=== PATIENT | female | born 1935 | race Caucasian/White ===

== ENCOUNTER 2019-01-13 10:57 | Emergency (ER) | payer OTHER ==
[~2019-01-13] VITALS: Ht 160 cm; Wt 100.0 kg
[~2019-01-13 10:57] MED LIST: ANTIVERT 25MG25 MG PO; ASPI325T6 PO; ASPIRIN 81M81 MG/TA2 PO; ASPIRIN E.C. 8181 MG PO; ASPRIN; CLARITIN 1010 MG/TAB PO; COZAAR100 MG PO; DYRENIUM 50MG C50 MG PO; FERROUS SU325 MG/TAB PO; FISH OIL1000 MG PO; FOLIC ACID 40400 MCG PO; GLUCOSAMINE & C1 TAB PO; LASIX 20MG TABL20 MG PO; LIPITOR 40MG TA40 MG PO; LOPRESSOR 550 MG/TAB PO; MELATONIN1 MG PO; MULTIPLE VITAMI1 CAP PO; NORCO 325 MG-7.1 TAB PO; PERIDEX (CHLOR480 ML MM; PROTONIX20 MG PO; ROXICODONE 55 MG/TAB PO; SENOKOT S 50 MG1 TAB PO; TYLENOL 500MG500 MG PO; TYLENOL ARTHRITIS PO; ULTRAM 50MG TAB50 MG PO; VIT E; VITAMIN C500 MG PO; VITAMIN D 400400 IU PO; VITAMIN E28000 IU PO; VTAMINC250TA PO; ZANTAC 150MG T150 MG PO; ZANTAC150 MG PO; ZYLOPRIM 100MG100 MG PO; [UNRECOGNIZED DRUG - CODE] PO
[2019-01-13 11:00] VITALS: TEMP 97
[2019-01-13 11:46] LABS: BASO % 0.4 % (0.0-2.0); EOS # 0.1 (0.0-0.7); EOS % 2.5 % (0-4.0); GRAN # 3.1 (1.4-6.5); GRAN % 63.7 % (42.2-75.2); HEMATOCRIT 39.6 % (37.0-47.0); HEMOGLOBIN 12.8 g/dl (12.5-16.0); LYMPH # 0.9 (1.2-3.4); MEAN CELL VOLUME 102 fl (80.0-100.0); MEAN CORPUSCULAR HEMOGLOBIN 33 pg (27.0-31.0); MEAN CORPUSCULAR HGB CONC 32 g/dl (33.0-37.0); MEAN PLATELET VOLUME 11.5 fl (7.4-10.4); MONO # 0.7 (0.1-0.6); MONO % 14.2 % (1.7-9.3); PLATELET COUNT 160 K/mm3 (130-400); REDCELL DISTRIBUTION WIDTH-CV 14.3 % (11.5-14.5)
[2019-01-13 11:49] LABS: ALANINE AMINOTRANSFERASE < 6 U/L (9-52); ALBUMIN 4.6 gm/dL (3.5-5.0); ALKALINE PHOSPHATASE 85 U/L (50-136); ANION GAP 9 mmol/L (7-16); AST,SGOT 38 U/L (15-37); BILIRUBIN,TOTAL 0.7 mg/dL (0.0-1.0); BLOOD UREA NITROGEN 25 mg/dL (7-17); CALCIUM 10.6 mg/dL (8.4-10.2); CARBON DIOXIDE 28 mmol/L (22-30); CHLORIDE 101 mmol/L (98-107); CREATININE, serum 0.96 (0.52-1.25); GLUCOSE 107 mg/dL (74-106); POTASSIUM 4.3 mmol/L (3.4-5.0); SODIUM 138 mmol/L (137-145); TOTAL PROTEIN 7.9 gm/dL (6.4-8.2)
[2019-01-13 12:03] LABS: TROPONIN-I < 0.012 ng/mL (0.000-0.035)
[2019-01-13 12:43] VITALS: BP 146/43; PULSE 63
== END 2019-01-13 13:47 | disposition home or self-care (01) ==
LOC: COL.ER 10:57
PROVIDERS: Emergency Medicine
DX: R42 Dizziness and giddiness (principal); I10 Essential (primary) hypertension; Z79.82 Long term (current) use of aspirin
CPT/HCPCS: J7030

== ENCOUNTER → 2019-01-24 | Outpatient (CLI) | payer MEDICARE, OTHER | LOC: DIA.ED | DX: E11.9 Type 2 diabetes mellitus without complications (principal); E78.5 Hyperlipidemia, unspecified; I10 Essential (primary) hypertension | CPT/HCPCS: G0108 ==

== ENCOUNTER → 2019-02-15 | Outpatient (CLI) | payer MEDICARE | LOC: DIA.ED 08:47 | DX: E11.9 Type 2 diabetes mellitus without complications (principal); E78.5 Hyperlipidemia, unspecified; I10 Essential (primary) hypertension; E66.9 Obesity, unspecified ==

== ENCOUNTER → 2019-12-21 | Outpatient (CLI) | payer MEDICARE | LOC: COL.RAD 10:25 | DX: I67.82 Cerebral ischemia (principal) ==

== ENCOUNTER 2020-05-08 09:51 | Day surgery (SDC) | payer MEDICARE ==
[~2020-05-08] VITALS: Ht 160.1 cm; Wt 95.7 kg
[2020-05-08] VITALS (12 sets, daily range): BP systolic 106–142; BP diastolic 46–96; PULSE 60–78; TEMP 97.5–98
[2020-05-08 10:57] LABS: HEMOGLOBIN 10.9 g/dl (12.5-16.0); MEAN CELL VOLUME 98 fl (80.0-100.0); MEAN CORPUSCULAR HEMOGLOBIN 32 pg (27.0-31.0); MEAN CORPUSCULAR HGB CONC 32 g/dl (33.0-37.0); MEAN PLATELET VOLUME 10.8 fl (7.4-10.4); PLATELET COUNT 178 K/mm3 (130-400); RED BLOOD COUNT 3.46 M/mm3 (4.10-5.30)
[2020-05-08 11:01] LABS: HEMATOCRIT 33.9 % (37.0-47.0)
[2020-05-08 11:04] LABS: PROTHROMBIN TIME 11.2 SECONDS (9.7-12.8)
[2020-05-08 11:06] LABS: CALCIUM 10.7 mg/dL (8.4-10.2); CREATININE, serum 1.1 (0.52-1.25); POTASSIUM 4.4 mmol/L (3.4-5.0)
[2020-05-08] MEDS ORDERED: ZOLOFT 100MG100 MG PO (11:06)
[2020-05-08] MEDS ORDERED: IMDUR 30MG30 MG/TAB PO (11:09)
[2020-05-08] MEDS ORDERED: DUO-KAPS1 CAP PO (11:10)
[2020-05-08] MEDS ORDERED: D3-5050000 IU PO (11:10)
[2020-05-08] MEDS ORDERED: LUTEIN6 MG PO (11:11)
[2020-05-08] MEDS ORDERED: ZETIA 10MG TAB10 MG PO (11:11)
[2020-05-08] MEDS ORDERED: VITAMIN B12 781 TAB PO (11:12)
[2020-05-08] MEDS ORDERED: SENNA-S 50 MG-81 TAB PO (11:15)
[2020-05-08] MEDS ORDERED: ASPIRIN 81M81 MG/TA2 PO (11:16)
[2020-05-08] MEDS ORDERED: PEN-VEE K500 MG PO (11:18)
[2020-05-08] MEDS ORDERED: TYLENOL 500MG500 MG PO (11:19)
[2020-05-08] MEDS ORDERED: VOLTAREN 75 DR75 MG PO (11:20)
--- NOTE | 2020-05-08 12:01 | NUR ---
SEE MERGE DOCUMENTATION FOR MEDICATION ADMINISTRATION TIMES AND INTRA/POST PROCEDURE SEDATION ASSESSMENTS. RIGHT HAND BARBEAU TEST POSITIVE.
--- NOTE | 2020-05-08 13:08 | NUR ---
report received from [employer] pt to transfer to floor.
--- NOTE | 2020-05-08 13:50 | NUR ---
Pt arrives to medical unit rm [id number] from laborer [employer] paving via cart, transferred to bed with assist. Pt A&O x 4, denies pain at this time. IV to left AC patent, fluids disconnected per orders. TR band and splint in place to right radial site. Pt denies tingling or pain. Cap refill brisk in fingers of right hand. POC reviewed with pt. No further needs reported. Call light in reach.
--- NOTE | 2020-05-08 14:30 | NUR ---
Pt assisted to bathroom, ambulates with steady gait, denies pain or dizziness. Informed pt to call if needing assistance otherwise up ad shawn.
--- NOTE | 2020-05-08 15:30 | NUR ---
5 ml of air released from TR band. Pt denies pain or needs. Call light in reach.
--- NOTE | 2020-05-08 17:30 | NUR ---
Remaining air released from TR band and bandaid placed over site. No s/s of bleeding. Pt denies pain or tingling to right upper ext. POC reviewed with pt. No further needs reported. Call light in reach.
--- NOTE | 2020-05-08 23:13 | NUR ---
Patient doing well. A&O x's 4, denies pain or nausea, ambulating independently, voiding without difficulty, and right wrist board in place. Band-aid clean dry and intact.
[2020-05-09] VITALS: BP 134/50; PULSE 68; TEMP 97.9
[2020-05-09 00:28] VITALS: BP 134/50; PULSE 68; TEMP 97.9
[2020-05-09 03:49] VITALS: BP 123/46; PULSE 64; TEMP 97.7
--- NOTE | 2020-05-09 05:22 | NUR ---
PATIENT VTE IS BRILINTA
[2020-05-09] MEDS ORDERED: BRILINTA90 MG PO (07:51)
[2020-05-09 08:25] VITALS: BP 107/46; PULSE 60; TEMP 97.2
--- NOTE | 2020-05-09 09:08 | NUR ---
Initial visit; Patient thanked Counterintelligence Agent for looking in on her and talking with her about her life and grief of losing her for whom Counterintelligence Agent had ministered. Counterintelligence Agent offered comfort, encouragement and prayer for Negar.
--- NOTE | 2020-05-09 09:45 | NUR ---
SW met with the patient to discuss discharge plan. The patient lives alone in [place]. Her last May. She reports independence with ADLs and has a cane. The patient's PCP is Dr. Connie Dawn and she receives her medications from [facility]. She reports no difficulties obtaining her meds. The patient has a DPOA-HC in EMR that lists her late . The patient states that she has a new DPOA-HC that lists all of her five children. She has five children in all: Giovanna Collins (ph#[phone], [place]), Jovan Valle ([place]), Trinidad Franklin ([facility]), George Valle ([place]), and Nia Henderson ([place], [place]). The patient plans to stay at her daughter, Fr[place], house upon discharge today. No additional needs at this time.
--- NOTE | 2020-05-09 10:49 | NUR ---
Assessment complete. Patient awake and alert, in restroom at time of entry. States that she feels good and is ready to go home. Right radial cath site looks good, covered with bandaid and coban, no drainage or bleeding present. Denie pain or discomfort at this time. IV site CD&I. No other needs were expressed, call light is in recah.
[2020-05-09 10:50] VITALS: BP 135/72; PULSE 66; TEMP 97.3
--- NOTE | 2020-05-09 12:13 | NUR ---
Patient left the floor at this time. Discharge instructions were discussed. One of pts concerns was whether she is to continue her hydrochlorathiazide at home. I attempted to call Dr. Murrell prior to her leaving but could not get through and her daughter arrived. I did make sure to tell the patient to call the office in order to confirm this, she agreed and expressed understanding. no further questions or concerns.
== END 2020-05-09 12:20 | disposition home or self-care (01) ==
LOC: COL.CAR 09:51 → MEDICAL 14:49 → COL.CAR 05-09 12:20
PROVIDERS: Internal Medicine Cardiovascular Disease
DX: I25.10 Atherosclerotic heart disease of native coronary artery without angina pectoris (principal); Z79.82 Long term (current) use of aspirin; Z20.828 Contact with and (suspected) exposure to other viral communicable diseases
CPT/HCPCS: OP; C9600; J1644; J2250; J3010; J7030; Q9967

== ENCOUNTER → 2022-01-02 | Outpatient (CLI) | payer MEDICARE ==
[~2022-01-02] MED LIST changes: +BRILINTA90 MG PO; +D3-5050000 IU PO; +DUO-KAPS1 CAP PO; +IMDUR 30MG30 MG/TAB PO; +LUTEIN6 MG PO; +PEN-VEE K500 MG PO; +SENNA-S 50 MG-81 TAB PO; +VITAMIN B12 781 TAB PO; +VOLTAREN 75 DR75 MG PO; +ZETIA 10MG TAB10 MG PO; +ZOLOFT 100MG100 MG PO
== END ==
LOC: COL.RAD 09:38
DX: R10.11 Right upper quadrant pain (principal)

== ENCOUNTER 2022-06-13 16:36 | Emergency (ER) | payer MEDICARE ==
[~2022-06-13] VITALS: Ht 165.1 cm; Wt 94.5 kg
[~2022-06-13 16:36] MED LIST changes: +AMOXICILLIN 8751 TAB PO; +K-DUR20 MEQ PO
[2022-06-13 16:38] VITALS: TEMP 97.7
[2022-06-13 17:25] LABS: BASO % 0.4 % (0.0-2.0); EOS # 0.1 K/mm3 (0.0-0.7); EOS % 2.6 % (0.0-4.0); GRAN # 2.7 K/mm3 (1.4-6.5); GRAN % 48.9 % (42.2-75.2); HEMOGLOBIN 12.3 g/dl (12.5-16.0); LYMPH # 1.7 K/mm3 (1.2-3.4); LYMPH % 31.7 % (20.0-51.0); MEAN CELL VOLUME 101 fl (80.0-100.0); MEAN CORPUSCULAR HEMOGLOBIN 34 pg (27-31); MEAN CORPUSCULAR HGB CONC 33 g/dl (33.0-37.0); MONO # 0.9 K/mm3 (0.1-0.6); MONO % 16.2 % (1.7-9.3); PLATELET COUNT 179 K/mm3 (130-400); RED BLOOD COUNT 3.64 M/mm3 (4.10-5.30); REDCELL DISTRIBUTION WIDTH-CV 14.4 % (11.5-14.5)
[2022-06-13 17:27] LABS: HEMATOCRIT 36.8 % (37.0-47.0)
[2022-06-13 17:44] LABS: ALANINE AMINOTRANSFERASE 18 U/L (0-55); ALBUMIN 3.9 gm/dL (3.4-4.8); ALKALINE PHOSPHATASE 75 U/L (40-150); ANION GAP 13 mmol/L (7-16); AST,SGOT 19 U/L (5-34); BILIRUBIN,TOTAL 0.8 mg/dL (0.2-1.2); BLOOD UREA NITROGEN 28 mg/dL (10-20); CALCIUM 11.4 mg/dL (8.4-10.2); CARBON DIOXIDE 23 mmol/L (23-31); CHLORIDE 103 mmol/L (98-107); CREATININE, serum 1.69 mg/dL (0.57-1.11); GLUCOSE 103 mg/dL (70-99); POTASSIUM 4.9 mmol/L (3.5-4.5); SODIUM 139 mmol/L (136-145); TOTAL PROTEIN 7.5 gm/dL (6.2-8.1)
[2022-06-13 17:51] LABS: TROPONIN-I < 0.010 ng/mL (0.00-0.033)
[2022-06-13 17:54] LABS: MUCOUS Present (NOT PRESENT); SQUAMOUS EPITHELIAL None Seen /hpf (0-10); URINE APPEARANCE Clear (CLEAR/HAZY); URINE BACTERIA None Seen /hpf (NONE SEEN); URINE BLOOD 1+ (NEGATIVE); URINE COLOR Yellow (YELLOW); URINE GLUCOSE Negative (NEGATIVE); URINE KETONE Negative (NEGATIVE); URINE NITRATE Negative (NEGATIVE); URINE PROTEIN(semi-quant) Negative (NEGATIVE); URINE UROBILINOGEN 0.2 (NEGATIVE); URINE WBC 0-2 /hpf (0-2)
[2022-06-13 17:59] LABS: COLLECTION METHOD CATHETER
[2022-06-13 20:22] VITALS: BP 151/106; PULSE 66
== END 2022-06-13 20:22 | disposition home or self-care (01) ==
LOC: COL.ER 16:36
PROVIDERS: Emergency Medicine
DX: R44.3 Hallucinations, unspecified (principal); E83.52 Hypercalcemia; R79.89 Other specified abnormal findings of blood chemistry; E87.5 Hyperkalemia
CPT/HCPCS: J7030; Q9967